=== PATIENT | male | born 1965 | race African-American/Black ===

== ENCOUNTER 2017-07-13 20:09 | Emergency (ER) | payer MEDICAID ==
[~2017-07-13] VITALS: Ht 188 cm; Wt 103.4 kg
[~2017-07-13 20:09] MED LIST: RANI-551 PO; SIMV20TA6 PO
--- NOTE | 2017-07-13 21:17 | NUR ---
Dr royce friend Patient
[2017-07-13] MEDS ORDERED: TDAP DIPH,PERTUSS,TET VAC/PF 0.5 ML DISP.SYRIN IM ONE ×2 (21:30→21:40)
[2017-07-13] MEDS ORDERED: LIDOCAINE HCL 1% 20 ML VIAL IJ ONE (22:00)
[2017-07-13] MEDS ORDERED: IBUPROFEN 800 MG TABLET PO ONE (23:15)
[2017-07-13] MEDS ORDERED: NEOMY/BACITRA/POLYMYXIN B OINT UD PACKET TP ONE ×2 (23:15→23:23)
--- NOTE | 2017-07-13 23:20 | NUR ---
Patient discharged to home in stable conditon. Written and verbal after care instructions given. Patient verbalizes understanding of instructions. Walked out of ER with steady gait.No distress noted
[2017-07-13 23:22] VITALS: BP 135/60
[2017-07-13] MEDS ORDERED: IBUPROFEN 800 MG TABLET ONE (23:23)
== END 2017-07-13 23:23 | disposition home or self-care (01) ==
LOC: ER 20:16
DX: S60.552A Superficial foreign body of left hand, initial encounter (principal); E78.5 Hyperlipidemia, unspecified; K21.9 Gastro-esophageal reflux disease without esophagitis; F17.200 Nicotine dependence, unspecified, uncomplicated; W25.XXXA Contact with sharp glass, initial encounter; Y93.89 Activity, other specified; Y92.9 Unspecified place or not applicable; Y99.9 Unspecified external cause status
CPT/HCPCS: 73130; 90715; A4663; J3490

== ENCOUNTER 2018-05-09 18:22 | Emergency (ER) | payer MEDICAID ==
[~2018-05-09] VITALS: Ht 188 cm; Wt 104.3 kg
--- NOTE | 2018-05-09 19:05 | NUR ---
Dr. Schreiber at bedside for MSE.
[2018-05-09] MEDS ORDERED: CYCLOBENZAPRINE HCL 10 MG TABLET PO ONE (19:15)
[2018-05-09] MEDS ORDERED: OXYCODONE/APAP 5-325 MG TABLET PO ONE (19:15)
[2018-05-09] MEDS ORDERED: IBUPROFEN 600 MG TABLET PO ONE (19:15)
[2018-05-09] MEDS ORDERED: CYCLOBENZAPRINE HCL 10 MG TABLET ONE (19:21)
[2018-05-09] MEDS ORDERED: IBUPROFEN 600 MG TABLET ONE (19:22)
[2018-05-09] MEDS ORDERED: OXYCODONE/APAP 5-325 MG TABLET ONE (19:22)
--- NOTE | 2018-05-09 19:22 | NUR ---
Patient discharged to home in stable conditon. Written and verbal after care instructions given. Patient verbalizes understanding of instructions. Pt ambulated out of ER with steady gait, no acute signs of distress, VSS, all belongings taken.
[2018-05-09 19:24] VITALS: BP 110/91
== END 2018-05-09 19:25 | disposition home or self-care (01) ==
LOC: ER 18:23
DX: S16.1XXA Strain of muscle, fascia and tendon at neck level, initial encounter (principal); M54.9 Dorsalgia, unspecified; Z71.6 Tobacco abuse counseling; E78.5 Hyperlipidemia, unspecified; K21.9 Gastro-esophageal reflux disease without esophagitis; F17.200 Nicotine dependence, unspecified, uncomplicated; V43.52XA Car driver injured in collision with other type car in traffic accident, initial encounter; Y93.89 Activity, other specified; Y92.410 Unspecified street and highway as the place of occurrence of the external cause; Y99.8 Other external cause status
CPT/HCPCS: 99284; 99406; A4663